=== PATIENT | male | born 1930 | race African-American/Black ===

== ENCOUNTER 2016-11-27 05:40 | Day surgery (SDC) | payer OTHER ==
[~2016-11-27] VITALS: Ht 157.5 cm; Wt 59.5 kg
[~2016-11-27 05:40] MED LIST: ACET12.52 PEG; DEXAMETHASONE SOD PHOS 4 MG/ML VIAL IVP ONE; FentaNYL CITRATE-PF 100 MCG/2 ML VIAL IVP ONE; GLYCOPYRROLATE 0.2 MG/ML VIAL IM ONE; KETOROLAC TROMETHAMINE 60 MG/2 ML VIAL IM ONE; LIDOCAINE HCL/PF 2% 5 ML VIAL IM ONE; LORA10TA7 PO; NEOSTIGMINE METHYLSULFATE 1 MG/ML 10 ML VIAL IVP ONE; ONDANSETRON HCL 4 MG/2 ML VIAL IVP ONE; RANI150T7 PO; ROCURONIUM BROMIDE 10 MG/ML 5 ML VIAL IVP ONE
[2016-11-27] MEDS ORDERED: RINGERS SOLUTION,LACTATED 1,000 ML IV ONE ×3 (05:45→09:23)
[2016-11-27] MEDS ORDERED: CeFAZolin 2 GM/DEXTROSE 50 ML IV ONE ×2 (05:45→08:00)
[2016-11-27] MEDS ORDERED: TAMS0.4C32 PO (06:05)
[2016-11-27] MEDS ORDERED: IBUP-1546 PO (06:06)
[2016-11-27] MEDS ORDERED: ACET500C4 PO (06:07)
[2016-11-27] MEDS ORDERED: ACET-48 PO (06:07)
[2016-11-27] MEDS ORDERED: HYDR-3965 PO (06:08)
[2016-11-27 06:38] LABS: BASOPHILS # (AUTO) 0.02 K/uL (0.00-0.20); BASOPHILS % (AUTO) 0.4 % (0.0-2.0); EOSINOPHILS # (AUTO) 0.35 K/uL (0.00-0.70); EOSINOPHILS % (AUTO) 6.61 % (1.0-6.0); HEMOGLOBIN 11.3 g/dL (13.5-17.5); LYMPHOCYTES # (AUTO) 2.3 K/uL (1.0-4.8); LYMPHOCYTES % (AUTO) 44.1 % (22.0-44.0); MEAN CORPUSCULAR HEMOGLOBIN 28.7 pg (26.0-34.0); MEAN CORPUSCULAR HGB CONC 33.2 G/dL (31.0-37.0); MEAN CORPUSCULAR VOLUME 86 fL (80-100); MONOCYTES # (AUTO) 0.5 K/uL (0.1-1.0); MONOCYTES % (AUTO) 9.1 % (2.0-9.0); NEUTROPHILS # (AUTO) 2.1 K/uL (1.8-7.7); NEUTROPHILS % (AUTO) 39.8 % (40.0-70.0); PLATELET COUNT (AUTO) 260 K/uL (150-450); RED BLOOD CELL COUNT(AUTO) 3.94 MIL/uL (4.50-5.90); RED CELL DISTRIBUTION WIDTH 14.9 % (11.5-14.5); WHITE BLOOD COUNT (AUTO) 5.2 K/uL (4.5-11.0)
[2016-11-27] MEDS ORDERED: BUPIVACAINE HCL/PF 0.5% 30 ML VIAL ONE (06:47)
[2016-11-27] MEDS ORDERED: LIDOCAINE HCL/PF 2% 5 ML VIAL ONE (06:47)
[2016-11-27 06:48] LABS: ANION GAP 4 mmol/L (8-16); CALCIUM, TOTAL 8.3 mg/dL (8.8-10.5); CARBON DIOXIDE 32 mmol/L (22-29); CHLORIDE 103 mmol/L (98-107); CREATININE 1.34 mg/dL (0.60-1.30); GLOMERULAR FILTR. RATE CALC > 60 mL/min (>60); POTASSIUM 4.3 mmol/L (3.5-5.1); SODIUM SERUM 139 mmol/L (136-145); UREA NITROGEN, BLOOD 18 mg/dL (7-18)
[2016-11-27 06:50] LABS: PROTHROMBIN TIME 10.9 SEC (9.4-11.6)
[2016-11-27 06:55] LABS: ALANINE AMINOTRANSFERASE 23 U/L (12-78); ALBUMIN 3.7 g/dL (3.4-5.0); ASPARTATE AMINOTRANSFERASE 29 U/L (15-37); BILIRUBIN,TOTAL 0.2 mg/dL (0.1-1.0); TOTAL PROTEIN, SERUM 8.3 g/dL (6.4-8.2)
[2016-11-27] MEDS ORDERED: LIDOCAINE HCL 2%/EPI 1:200,000/PF 10 ML VIAL ONE (07:22)
[2016-11-27] MEDS ORDERED: MEPERIDINE-PF 25 MG/ML SYRINGE IVP PRN (08:15)
[2016-11-27] MEDS ORDERED: HYDROmorphone 2 MG/ML SYRINGE IVP PRN (08:15)
[2016-11-27] MEDS ORDERED: GUM MASTIC/STORAX/MSAL/ALCOHOL LIQUID 0.67 ML VIAL TP ONE (09:50)
[2016-11-27] MEDS ORDERED: ACETAMINOPHEN 500 MG TABLET PO PRN (10:00)
[2016-11-27] MEDS ORDERED: HYDROCODONE/ACETAMINOPHEN 5-325 MG TABLET PO PRN (10:00)
[2016-11-27] MEDS ORDERED: IBUPROFEN 600 MG TABLET PO PRN (10:00)
[2016-11-27] MEDS ORDERED: FentaNYL CITRATE-PF 100 MCG/2 ML VIAL ONE (10:09)
[2016-11-27] MEDS: FentaNYL CITRATE-PF 100 MCG/2 ML VIAL IVP PRN ×2 (10:11→10:26)
[2016-11-27] MEDS ORDERED: HYDROCODONE/ACETAMINOPHEN 5-325 MG TABLET ONE (12:26)
[2016-11-27] MEDS ORDERED: OXYGEN THERAPY IH SCH (20:00)
== END 2016-11-27 12:50 | disposition home or self-care (01) ==
LOC: SURGERY 05:40
PROVIDERS: ATTEND Surgery
DX: K40.30 Unilateral inguinal hernia, with obstruction, without gangrene, not specified as recurrent (principal); Z91.018 Allergy to other foods; Z98.890 Other specified postprocedural states; Z79.01 Long term (current) use of anticoagulants
CPT/HCPCS: 36415; 49507; 80053; 85025; 85610; 85730; 88304; 93005; C1781; J0690; J1100; J1885; J2405; J3010; J3490 ×5; J7120

== ENCOUNTER 2016-11-29 03:35 | Emergency (ER) | payer OTHER ==
[~2016-11-29] VITALS: Ht 157.5 cm; Wt 65.9 kg
[~2016-11-29 03:35] MED LIST changes: +ACET-48 PO; -ACET12.52 PEG; +ACET500C4 PO; -DEXAMETHASONE SOD PHOS 4 MG/ML VIAL IVP ONE; -FentaNYL CITRATE-PF 100 MCG/2 ML VIAL IVP ONE; -GLYCOPYRROLATE 0.2 MG/ML VIAL IM ONE; +HYDR-3965 PO; +IBUP-1546 PO; -KETOROLAC TROMETHAMINE 60 MG/2 ML VIAL IM ONE; -LIDOCAINE HCL/PF 2% 5 ML VIAL IM ONE; -NEOSTIGMINE METHYLSULFATE 1 MG/ML 10 ML VIAL IVP ONE; -ONDANSETRON HCL 4 MG/2 ML VIAL IVP ONE; -ROCURONIUM BROMIDE 10 MG/ML 5 ML VIAL IVP ONE; +TAMS0.4C32 PO
[2016-11-29] MEDS ORDERED: HYDROCODONE/ACETAMINOPHEN 5-325 MG TABLET PO ONE (04:15)
[2016-11-29] MEDS ORDERED: IBUPROFEN 600 MG TABLET PO ONE (04:15)
[2016-11-29] MEDS ORDERED: POLYETHYLENE GLYCOL 3350 17 GM PACKET PO ONE (04:15)
[2016-11-29 04:23] VITALS: BP 119/71
== END 2016-11-29 04:24 | disposition home or self-care (01) ==
LOC: EMS 03:36
DX: R10.32 Left lower quadrant pain (principal); Z48.01 Encounter for change or removal of surgical wound dressing; Z91.018 Allergy to other foods
CPT/HCPCS: 99284